=== PATIENT | female | born 1955 | race Caucasian/White ===

== ENCOUNTER 2019-06-09 06:39 | Day surgery (SDC) | payer MEDICARE ==
[2019-06-09] VITALS (12 sets, daily range): BP systolic 103–133; BP diastolic 56–88
[~2019-06-09] VITALS: Ht 162.6 cm; Wt 106.7 kg
[2019-06-09] MEDS ORDERED: dextrose ORAL solution 15 GM/59 ML bottle PO PRN ×2 (07:55)
[2019-06-09] MEDS ORDERED: MESSAGE TO PHARMACY PO ONE (07:55)
[2019-06-09] MEDS ORDERED: glucagon, human recombinant 1mg kit SUBCUT PRN (07:55)
[2019-06-09] MEDS ORDERED: nitroGLYCERIN 0.4mg SUBLingual tab SL PRN ×2 (07:55→11:25)
[2019-06-09] MEDS ORDERED: diphenhydrAMINE 25mg capsule PO PRN (07:55)
[2019-06-09] MEDS ORDERED: LORazepam 0.5 MG tablet PO PRN (07:55)
[2019-06-09] MEDS ORDERED: insulin Lispro (HumaLOG) vial - multi-dose SQ SCH (07:55)
[2019-06-09] MEDS ORDERED: normal saline 1,000 ML IV SCH (07:55)
[2019-06-09] MEDS ORDERED: dextrose 50%-water 50ml dispensing syringe IV PRN ×2 (07:55)
[2019-06-09] MEDS ORDERED: DULO30CA52 PO (08:19)
[2019-06-09] MEDS ORDERED: NITR0.4T51 SL (08:19)
[2019-06-09] MEDS ORDERED: METF500T20 PO (08:19)
[2019-06-09] MEDS ORDERED: METO50TA17 PO (08:19)
[2019-06-09] MEDS ORDERED: OMEP40CA13 PO (08:19)
[2019-06-09 08:28] LABS: BASOPHILS % (AUTO) 0.3 % (0-1); EOSINOPHILS # (AUTO) 0.1 X10'3 (0-0.9); EOSINOPHILS % (AUTO) 1.7 % (0-6); HEMATOCRIT 37.1 % (35.0-45.0); HEMOGLOBIN 12.5 g/dl (12.0-16.0); LYMPHOCYTES # (AUTO) 1.2 X10'3 (1.1-4.8); LYMPHOCYTES % (AUTO) 25.4 % (21-51); MEAN CORPUSCULAR HEMOGLOBIN 27.9 PG (27.0-31.0); MEAN CORPUSCULAR HGB CONC 33.7 g/dL (33.0-36.5); MEAN CORPUSCULAR VOLUME 82.7 FL (78-98); MEAN PLATELET VOLUME 7.2 FL (7.4-10.4); MONOCYTES # (AUTO) 0.3 X10'3 (0-0.9); MONOCYTES % (AUTO) 5.6 % (2-12); NEUTROPHILS # (AUTO) 3.2 X10'3 (1.8-7.7); PLATELET COUNT 189 X10'3 (140-440); RED BLOOD COUNT 4.48 X10'6 (4.20-5.60); RED CELL DISTRIBUTION WIDTH 14.8 % (11.5-14.5); WHITE BLOOD COUNT 4.7 X10'3 (4.5-11.0)
[2019-06-09 08:36] LABS: ALBUMIN 3.2 G/DL (3.4-5.0); BLOOD UREA NITROGEN 12 MG/DL (7-18); BUN/CREATININE RATIO 15.8 (6.6-38.0); CALCIUM 8.1 MG/DL (8.5-10.1); CREATININE 0.76 MG/DL (0.40-0.90); POTASSIUM 3.6 MMOL/L (3.5-5.1); TOTAL CARBON DIOXIDE 28.6 MMOL/L (24-32); eGFR 77 ML/MIN
[2019-06-09 08:40] LABS: PARTIAL THROMBOPLASTIN TIME 46 SECONDS (22-32)
--- NOTE | 2019-06-09 08:44 | NUR ---
Pt resting in bed, appears comfortable, even respirations. VS stable as charted. Contacted pt's as per her request, will call him back once patient is back from procedure.
[2019-06-09 09:09] LABS: GLUCOSE 142 MG/DL (70-104); SODIUM 141 MMOL/L (135-145)
[2019-06-09 09:17] LABS: HEMOGLOBIN A1C 6.5 % (4.5-6.2)
[2019-06-09 09:19] LABS: ANION GAP 6 (8-16); CHLORIDE 106 MMOL/L (99-107)
[2019-06-09] MEDS ORDERED: LIDOcaine 1% (10mg/ml)w/preservative injection 20ml MDV ONE (09:49)
[2019-06-09] MEDS ORDERED: fentaNYL/PF 50MCG/1 ML 2ML syringe ONE ×2 (09:49→10:27)
[2019-06-09] MEDS ORDERED: midazolam 2 mg/2 ml injection ONE ×2 (09:49→10:27)
[2019-06-09] MEDS ORDERED: iohexol 350 MG/ML 50ML vial IV ONE (09:49)
[2019-06-09] MEDS ORDERED: iohexol 350MG/ML 100ml bottle IV ONE (09:49)
--- NOTE | 2019-06-09 10:00 | NUR ---
PT LEFT FLOOR FOR PROCEDURE
[2019-06-09 10:51] LABS: ISTAT HGB ART 10.2 g/dl (12.0-16.0); ISTAT Hct ART 30 %PCV (35-48); ISTAT O2 SATURATION ARTERIAL 98 % (95-98); ISTAT SOURCE ART
[2019-06-09] MEDS ORDERED: HYDROcodone/acetaminophen 5mg/325mg tablet PO PRN (11:25)
[2019-06-09] MEDS ORDERED: normal saline 1000ml 1,000 ML IV SCH (11:25)
[2019-06-09] MEDS ORDERED: ondansetron/PF 4mg/2ml inj IV PRN (11:25)
[2019-06-09] MEDS ORDERED: proCHLORperazine 10 MG/2 ml inj IV PRN (11:25)
[2019-06-09] MEDS ORDERED: OXAZEpam 15mg capsule PO PRN (11:25)
[2019-06-09] MEDS ORDERED: HYDROcodone/acetaminophen 10/325mg tab PO PRN (11:25)
--- NOTE | 2019-06-09 12:18 | NUR ---
spoke with patients , per her request. , Don states he will be here by 1645 to pick pulling machine operator at 1700.
--- NOTE | 2019-06-09 16:04 | NUR ---
Problems reprioritized. Patient report given, questions answered & plan of care reviewed with Vinicio PATRICK.
[2019-06-09] MEDS ORDERED: insulin glargine (Lantus) pen - multi-dose SQ SCH (21:00)
== END 2019-06-09 16:55 | disposition home or self-care (01) ==
LOC: SSTAY O 06:39 → MED 3N 06:47 → SSTAY O 16:55
PROVIDERS: ATTEND Internal Medicine Cardiovascular Disease
DX: R94.39 Abnormal result of other cardiovascular function study (principal); R06.09 Other forms of dyspnea; I25.119 Atherosclerotic heart disease of native coronary artery with unspecified angina pectoris; I25.82 Chronic total occlusion of coronary artery; F32.9 Major depressive disorder, single episode, unspecified; I10 Essential (primary) hypertension; E11.9 Type 2 diabetes mellitus without complications; J44.9 Chronic obstructive pulmonary disease, unspecified; E66.01 Morbid (severe) obesity due to excess calories; Z68.41 Body mass index [BMI] 40.0-44.9, adult; Z95.1 Presence of aortocoronary bypass graft; Z90.710 Acquired absence of both cervix and uterus; Z86.14 Personal history of Methicillin resistant Staphylococcus aureus infection; Z88.8 Allergy status to other drugs, medicaments and biological substances; Z79.899 Other long term (current) drug therapy; Z79.84 Long term (current) use of oral hypoglycemic drugs; Z87.891 Personal history of nicotine dependence; Z79.01 Long term (current) use of anticoagulants
CPT/HCPCS: 36415; 71046; 80048; 82803; 82948; 83036; 85014; 85025; 85610; 85730; 93005; 93461; 99152; 99153; C1769; J1644; J1815; J2001; J2250; J3010; J7030; Q0163; Q9967; A4620; A6258; C1760

== ENCOUNTER 2024-10-19 11:28 | Inpatient (IN) | payer MEDICARE, OTHER ==
[~2024-10-19] VITALS: Ht 160 cm; Wt 96.3 kg
[~2024-10-19 11:28] MED LIST: DULO30CA52 PO; MECL-226 PO; METF-900 PO; METO50TA17 PO; NITR0.4T51 SL; OMEP40CA21 PO
--- NOTE | 2024-10-19 13:51 | Physician Documentation ---
History of Present Illness General Chief Complaint: See Chief Complaint Stated Complaint: TOE PAIN Time Seen by MD: 13:50 OK to notify your PCP?: No Source: patient, RN notes reviewed Mode of Arrival: Ambulatory Exam Limitations: no limitations History of Present Illness Initial Comments 68-year-old female, with a history of diabetes, presents complaining of severe left 3rd toe pain. Patient reports she was diagnosed with a DVT on 09/15/2024 after presenting to [facility] with the leg pain. Patient reports Dr. Moya placed a stent in her left lower extremity and she was discharged after a two day admission. She has been has been taking Plavix Na 1 mg of aspirin da padmini. Since this time her left 3rd toe became gangrene and she has had severe pain for the last several weeks. She reports the toe feels as if it is going to explode. Pain radiates up the foot and increases with walking. Medication Reconciliation Allergies: Coded Allergies: No Known Allergies (Unverified , 10/19/24) Scheduled Aspirin (Aspirin), 1 TAB PO DAILY Atorvastatin Calcium (Atorvastatin Calcium), 40 MG PO DAILY Clopidogrel Bisulfate (Clopidogrel), 1 TAB PO DAILY, (Reported) Duloxetine HCl (Duloxetine HCl), 1 CAP PO DAILY, (Reported) Insulin Glargine/Lixisenatide (Soliqua 100 Unit-33 Mcg/ml Pen), 28 UNITS SUBCUT DAILY, (Reported) Meclizine HCl (Meclizine HCl), 1 TAB PO Q8H Meclizine HCl (Meclizine HCl), 2 TAB PO Q8H Metformin Hcl* (Metformin ER*), 1 TAB PO BID, (Reported) Metoprolol Tartrate* (Metoprolol Tartrate*), 1 TAB PO BID, (Reported) Nitroglycerin SL* (Nitrostat SL*), 1 TAB SL UD, (Reported) Omeprazole (Prilosec), 20 MG PO DAILY, (Reported) Pregabalin (Pregabalin), 1 CAP PO BID, (Reported) Scheduled PRN Hydrocodone Bit/Acetaminophen 5/325 MG (Champion 5/325 MG), 1 TAB PO Q6H PRN for pain Past Medical History Past Medical History: Diabetes Past Surgical History: appendectomy, cholecystectomy, hysterectomy, orthopedic surgeries Other Past Surgical History: Open heart surgery Drug Use: none Lives In: Home Review of Systems All Other Systems at this time: Reviewed and Negative ROS left 3rd toe pain as well as other positive symptoms as stated above in the HPI, otherwise all systems are reviewed and negative. Physical Exam Physical Exam Vital Signs: RN Vital Signs have been reviewed: Yes, Temperature: 97.2, Source: Oral, Heart Rate: 104, Respiratory Rate: 16, BP: 164/98, Pulse Oximetry: 98, Weight: 96.300 Pulse Oximetry Reflects: adequate oxygenation Physical Exam VITALS: Reviewed and as above. GENERAL: Alert, no apparent distress. HEENT: Normocephalic, atraumatic, PERRL, EOMI, dry mucosa RESPIRATORY: Lungs clear, normal breath sounds, no respiratory distress. CHEST: No accessory muscle use, no retractions CV: Regular rate, rhythm, no edema, no murmur, No: JVD GI: Soft, non-tender, bowels sounds present, no rebound, guarding, or rigidity MUSCULOSKELETAL: Positive of the left 3rd toe was necrotic, proximal portion of the distal phalanx with erythema, swelling, and tenderness. Distal left 2nd toe with some erythema. Otherwise: No deformities, no edema SKIN: See above. Warm and dry, no rash NEURO: Oriented x4, No motor or sensory deficit PSYCH: Normal mood and affect, no agitation Progress Progress Note 1420: Case discussed with Dr. Varner, vascular surgeon, who recommends consulting ortho. 1724: Case discussed with Dr. Sales, oracle erp developer, who requests hospitalist admission and will see her for surgery. 1724: Hospitalist paged. 1745: Case discussed with internal medicine resident, who agrees to evaluate the patient for admission. Results/Orders Reviewed/noted all lab results: Yes Results/Orders Orders - OHLFS,ROSIE Caban MD Vl Arterial (10/19/24 14:18) Toe(S) (10/19/24 14:35) Md To Page (10/19/24 ) Page Hospitalist (10/19/24 17:24) Fill Out Med Reconciliation (10/19/24 17:24) Completed Orders - OHLFSROSIE MD Vl Arterial (10/19/24 14:18) Toe(S) (10/19/24 14:35) Cbc/Diff (10/19/24 14:34) BMP (10/19/24 14:34) Procalcitonin (10/19/24 14:34) Oxycodone/Acetaminophen Tablet (Percocet (10/19/24 15:25) C-Reactive Protein (10/19/24 14:50) Vancomycin*Pharmacy To Dose* (Vancomycin (10/19/24 17:25) Vancomycin/Ns 1 Gm Add-[place] (Vancomyc (10/19/24 17:30) Hgb A1c (10/19/24 14:50) Lipid Panel (10/19/24 14:50) PBNP (10/19/24 14:50) Laboratory Tests Test 10/19/24 14:50 White Blood Count 6.4 Red Blood Count 4.76 Hemoglobin 11.8 L Hematocrit 35.8 Mean Corpuscular Volume 75.1 L Mean Corpuscular Hemoglobin 24.7 L Mean Corpuscular Hemoglobin Concent 33.0 Red Cell Distribution Width 15.2 H Platelet Count 204 Mean Platelet Volume 7.0 L Neutrophils (%) (Auto) 72.6 Lymphocytes (%) (Auto) 19.7 L Monocytes (%) (Auto) 5.0 Eosinophils (%) (Auto) 2.2 Basophils (%) (Auto) 0.5 Neutrophils # (Auto) 4.7 Lymphocytes # (Auto) 1.3 Monocytes # (Auto) 0.3 Eosinophils # (Auto) 0.1 Basophils # (Auto) 0.0 CBC Comment Sodium Level 140 Potassium Level 3.9 Chloride Level 105 Carbon Dioxide Level 26.1 Anion Gap 9 Blood Urea Nitrogen 11 Creatinine 0.61 Estimated GFR/1.73 m2 > 90 BUN/Creatinine Ratio 18.0 Glucose Level 103 Hemoglobin A1c 6.7 H Calcium Level 8.7 C-Reactive Protein 0.92 H Pro-B-Type Natriuretic Peptide 241 H Albumin 3.4 Triglycerides Level 211 H Cholesterol Level 138 LDL Cholesterol 81 HDL Cholesterol 31 L Cholesterol/HDL Ratio 4.5 Procalcitonin < 0.05 Chemistry Comments EKG/XRAY/CT/US/VASC/MRI Bone/Soft Tissue X-Ray (Ext.) : Additional Comment CLINICAL INDICATION: necrotic right 3rd toe TECHNIQUE: 3 radiographic views of the left foot and left 3rd digit were obtained. Comparison: None FINDINGS/IMPRESSION: Cortical destruction of the 3rd distal phalanx which may represent osteomyelitis. Reviewed by [facility]. Vascular : Interpreted By: radiologist Vascular Study: lower extremity venous Impression Patient Location: ER Indications Left lower extremity toe/foot pain Risk Factors History of Lower Extremity PAD: Left Hypertension Cardiac Disease Diabetes Surgery/Intervention Stent : Date : 09/16/2024 Site : Left mid superficial femoral artery Medications Plavix Aspirin VELOCITY AND DOPPLER WAVEFORM ANALYSIS RIGHT cm/sec Waveform Severity LEFT cm/sec Waveform Severity dCFA dCFA 119.1 Multiphasic Prof Fem Art. Prof Fem Art. 97.1 Multiphasic Fem Art Prox. Fem Art Prox. 105.8 Multiphasic Fem Art Mid. Fem Art Mid. 103.7 Multiphasic Fem Art Dist. Fem Art Dist. 111.7 Multiphasic Pop Art(AK) Pop Art(AK) 116.9 Multiphasic Pop Art(BK) Pop Art(BK) 75.7 Multiphasic SUPERVISOR STEFFEN HOUSE Dist. SUPERVISOR STEFFEN HOUSE Dist. 108.4 Multiphasic Per Art Dist. Per Art Dist. 74.4 Multiphasic LOIS Dist. LOIS Dist. 92.9 Multiphasic Conclusion Technologist Preliminary Impression: Mild to moderate plaque seen throughout the left lower extremity. However, imaging reveals no evidence for a hemodynamically significant stenosis or occlusion in the left lower extremity. Visualize stent in the left mid superficial femoral artery appears patent without stenosis. Multiphasic flow is noted throughout the left lower extremity. Unable to perform ankle-brachial index due to patient pain. Multiphasic triple- vessel runoff visualized at the foot. Reviewed by myself Medical Decision Making Findings The patient is a 69-year-old female who presents with a necrotic tip of her 3rd toe patient also has some erythema just proximal to the necrotic region of her toe her arterial studies were all reviewed the appear to show good flow. The case has been discussed with Dr. Sales who was agreed to consult on the patient. The patient has been given IV antibiotics for possible cellulitis or osteomyelitis the patient will be admitted to the hospitalist service for surgical intervention. The patient's prior hospitalizations have been reviewed patient's labs have been reviewed her pulse oximetry was interpreted as normal and adequate. The patient's sofa back upholsterer was interpreted as a sinus rhythm patient's imaging was reviewed and the radiologist's interpretations have been reviewed other considerations are osteomyelitis. The patient will be admitted Departure Time of Disposition: 17:24 Disposition: ADMITTED INPATIENT Admitted to Inpatient Unit: yes, to hospitalist Impression: Primary Impression: Necrosis of toe Additional Impression: Cellulitis Qualified Codes: L03.032 - Cellulitis of left toe Condition: Fair Prescriptions Atorvastatin Calcium (Atorvastatin Calcium) 20 Mg Tablet 40 MG PO DAILY for 30 Days, #60 TAB Prov: APOLLO BATRES, RES 10/22/24 Aspirin (Aspirin) 81 Mg Tab.chew 1 TAB PO DAILY for 30 Days, #30 TAB.CHEW Prov: APOLLO BATRES, RES 10/22/24 Hydrocodone Bit/Acetaminophen 5/325 MG (Champion 5/325 MG) 5 Mg/325 Mg Tablet 1 TAB PO Q6H PRN for pain, #14 TAB Prov: IRVIN HAWKINS MD 10/22/24 Education Educated: Patient Educated regarding: diagnosis, treatment Signature Scribe Signature: Scribed for Rosie You MD by Maureen Rodirguez . 10/19/24 14:15 Attestation: The note accurately reflects work and decisions made by me.Rosie You MD 10/25/24 15:10 ROSIE YOU MD Oct 19, 2024 13:51 MAUREEN MOURA Oct 19, 2024 14:21
--- NOTE | 2024-10-19 14:46 | RADIOLOGY REPORT ---
CLINICAL INDICATION: necrotic right 3rd toe TECHNIQUE: 3 radiographic views of the left foot and left 3rd digit were obtained. Comparison: None FINDINGS/IMPRESSION: Cortical destruction of the 3rd distal phalanx which may represent osteomyelitis.
[2024-10-19 15:04] LABS: MEAN PLATELET VOLUME 7.0 FL (7.4-10.4); RED CELL DISTRIBUTION WIDTH 15.2 % (11.5-14.5)
[2024-10-19 15:18] LABS: CREATININE 0.61 MG/DL (0.40-0.90); TOTAL CARBON DIOXIDE 26.1 MMOL/L (24-32); eCRCL 72 ML/MIN; eGFR > 90 ML/MIN
[2024-10-19] MEDS: oxyCODONE/APAP 5-325mg tablet PO ONE (15:37)
[2024-10-19] MEDS: vancomycin/NS 1 GM ADD-VANTAGE 250 ML X 1 DOSE IV ONE (18:12)
[2024-10-19] MEDS ORDERED: ondansetron/PF 4mg/2ml inj IV PRN (18:15)
[2024-10-19] MEDS ORDERED: HYDROcodone/acetaminophen 5mg/325mg tablet PO PRN (18:15)
[2024-10-19] MEDS ORDERED: potassium Cl 40MEQ/1/2NS 520ml 520 ML IV PRN (18:15)
[2024-10-19] MEDS ORDERED: magnesium Cl slow-release 64mg tablet PO PRN (18:15)
[2024-10-19] MEDS ORDERED: magnesium sulf-water 4G/100mL 100 ML IV PRN (18:15)
[2024-10-19] MEDS ORDERED: mag hydrox/Alum hydrox/simeth 30ml oral suspension PO PRN (18:15)
[2024-10-19] MEDS ORDERED: potassium Cl 20 mEq SR tablet PO PRN ×2 (18:15)
[2024-10-19] MEDS ORDERED: magnesium hydroxide 30ml (MOM) UD suspension PO PRN (18:15)
[2024-10-19] MEDS ORDERED: magnesium sulf-water 2g/50mL 50 ML IV PRN (18:15)
[2024-10-19] MEDS ORDERED: CefTRIAXone 2gm/D5W 50ml BAG 50 ML IV SCH (18:20)
[2024-10-19] MEDS ORDERED: dextrose 50%-water 50ml dispensing syringe IV PRN ×2 (18:20)
[2024-10-19] MEDS ORDERED: DEXTROSE 15 GM of carb/4 tabs (each vial/BOTTLE has 4 tablets) PO PRN ×2 (18:20)
[2024-10-19] MEDS ORDERED: glucagon, human recombinant 1mg kit SUBCUT PRN (18:20)
--- NOTE | 2024-10-19 18:29 | HISTORY AND PHYSICAL-Residence ---
History & Physical Providers to CC Resident Creating Document: GENE PIEDRA RES ~ History of Present Illness Reason for Admit\Complaint: 3rd left foot toe osteomyelitis History of Present Illness This is a 68-year-old female patient with past medical history of type 2 diabetes mellitus, PAD, hyperlipidemia, CAD, presents for progressive pain in the 3rd distal phalanx of the left foot. The patient had acute arterial thrombosis of the left leg in September 16, treated with thrombectomy and stenting placement. Soon after the procedure the patient had left foot livedo reticularis and discoloration of the 3rd toe. Patient was discharged and recommended to follow-up outpatient. Patient could not undergo surgery because of insurance denials and has been treated with multiple course of antibiotics. The pain has progressed and she has not being able to do most of her daily activities because of the pain. She denies fever, nausea, vomiting or other systemic symptoms. Allergies: Coded Allergies: No Known Allergies (Unverified , 10/19/24) Home Medications Home Medications Active Meclizine HCl 12.5 Mg Tablet 2 Tab PO Q8H 30 Days Meclizine HCl 12.5 Mg Tablet 1 Tab PO Q8H 10 Days Reported Nitrostat SL* (Nitroglycerin) 0.4 Mg Tablet 1 Tab SL UD 1st sign of attack; may repeat every 5 mins; if pain persists after 3 in 15 min, medical attention is recommended Duloxetine HCl 30 Mg Capsule.dr Levi Cap PO DAILY 30 Days Metformin ER* (Metformin HCl) 500 Mg Tab.sr.24h 1 Tab PO BID 30 Days Metoprolol Tartrate 50 Mg Tablet 1 Tab PO BID 30 Days Prilosec (Omeprazole) 40 Mg Capsule 20 Mg PO DAILY 30 Days Past Medical History Past Medical History Type 2 diabetes mellitus on insulin 28 units daily Peripheral artery disease Hyperlipidemia Coronary artery disease, followed by Dr. Stevens Past Surgical History Surgical History Comment Arterial embolectomy with stent placement of the left leg on September 16 CABG in 2011 Cholecystectomy Hysterectomy Past Social History Social History Comment Patient quit smoking in 2001. She used to smoke to smoke one pack a day. No alcohol or drug use history. Smoking: Quit greater than 1 year Drug Use: None Lives In: Home ROS All Other Systems: Reviewed and Negative Constitutional: Reports: no symptoms reported Eyes: Reports: no symptoms reported ENT: Reports: no symptoms reported Respiratory: Reports: no symptoms reported Cardiovascular: Reports: no symptoms reported Gastrointestinal: Reports: no symptoms reported Genitourinary: Reports: no symptoms reported Female Genitalia: Reports: no reported symptoms Neurological: Reports: no symptoms reported Musculoskeletal: Reports: see HPI Integumentary: Reports: see HPI Allergic/Immunologic: Reports: no symptoms reported Hematologic/Lymphatic: Reports: no symptoms reported Endocrine: Reports: no symptoms reported Psychiatric: Reports: no symptoms reported Exam Vitals: Vital Signs Date Time Temp Pulse Resp B/P (MAP) Pulse Ox O2 Delivery O2 Flow Rate FiO2 10/19/24 17:17 80 16 157/82 (107) 97 10/19/24 11:46 97.2 General: General: Awake and Alert, no acute distress. HEENT: Conjunctiva pink, Sclera clear, Mucus Membranes moist. Neck: Supple without masses and tenderness. Resp: Unlabored. Lungs clear to auscultation bilaterally. Heart: Regular Rate and rhythm, normal S1 and S2 without murmur, rub or gallop. Abdomen: Soft and non tender no organomegaly Extremities: No cyanosis,clubbing or edema. Diminished peripheral pulses bilaterally. Skin: Warm and Dry. Necrosis of the 3rd distal phalanx of the left foot with minimal erythema associated. Diagnostic Data Last Recorded Lab Results: 10/19/24 1450 10/19/24 1450 Advance Care Planning Advanced Care plannin - 30 Minutes (I have discussed with advanced care directives and the patient wants to be DNR) Additional Plan Assessment and plan 1. Dry gangrene involving the 3rd distal phalanx, left foot Assessment Most likely secondary to cholesterol emboli Pain and discoloration started after arterial thrombectomy Lesion progressed over the course of one month On aspirin and Plavix, no anticoagulant No signs of sepsis, no signs of cellulitis WBC 6.4, procalcitonin<0.05, C-reactive protein 0.92 Left foot x-ray: Cortical destruction of the 3rd distal phalanx which may represent osteomyelitis. Arterial left leg US: Patent left SFA stent. No sonographic evidence for hemodynamically significant stenosis. Scattered atherosclerotic calcification disease Plan Ordered blood cultures Dr Varner consulted by the ER physician. Recommendations are appreciated. Dr. Sales, fashion director, planning to do surgery on 10/21/24 morning Held antibiotics since no clear signs of cellulitis and normal white count/procalcitonin 2. Type 2 diabetes mellitus, insulin-dependent 3. Peripheral artery disease 4. Coronary artery disease, s/p CABG in 2011 5. Hyperlipidemia Ordered A1c Ordered lipid panel Did not tolerate statins, previously on Repatha Continue aspirin and Plavix after med reconciliation Code Status: DNR DVT prophylaxis: Heparin Analgesia/sedation: Morphine/[place] Nutrition: 75g carb diet diet Prognosis: Guarded Physical therapy: Yes Disposition: Admit to surgical floor. Pending med reconciliation. Resident MD attestation The above note has been reviewed and supervised by a senior resident PGY2/PGY3 Patient was seen, examined and discussed with the attending physician Date of Service: Oct 19, 2024 Billing Provider: IRVIN HAWKINS MD Common Visit Codes: 71222-[id number] INP/OBS CARE (HIGH) Secondary Visit Codes: 32533-[id number] CARE PLAN 30 MINUTES GENE PIEDRA, RES Oct 19, 2024 18:29 IRVIN HAWKINS MD Oct 21, 2024 07:13
--- NOTE | 2024-10-19 18:39 | VASCULAR REPORT ---
Indication: Left lower extremity 12/foot pain Technique: Real- time ultrasound images of the lower extremity with grayscale, color, and spectral wave Doppler. Comparison: None Findings: Stent within the left mid SFA. Biphasic/ triphasic waveforms left PLANT TECH, SFA, popliteal, peroneal, ante rior tibial arteries. Scattered atherosclerotic plaque. Peak systolic velocities are as follows (in cm/s): Left: Common femoral artery: 119 Profunda femoris: 97 Proximal superficial femoral: 105 Mid superficial femoral artery: 103 Distal superficial femoral artery: 117 Popliteal artery: 116 Posterior tibial artery: 108 Anterior tibial artery: 92 Peroneal: 74 Impression: Patent left SFA stent. No sonographic evidence for hemodynamically significant stenosis. Scattered atherosclerotic calcification disease.
[2024-10-19 18:47] LABS: CHOL/HDL RATIO 4.5 (0.00-4.99); LDL CHOLESTEROL 81 MG/DL (50-100); PRO BRAIN NATRIURETIC PEPTIDE 241 PG/ML (0-125)
[2024-10-19] MEDS ORDERED: PREG75CA76 PO (19:44)
[2024-10-19] MEDS ORDERED: INSU3INS2 SUBCUT (19:44)
[2024-10-19] MEDS ORDERED: CLOP75TA34 PO (19:44)
[2024-10-19] MEDS: K and/or MAG REPLACEMENT MC SCH (20:00)
[2024-10-19 20:28] VITALS: BP 150/79; PULSE 85; RESP 19; TEMP 97.5; O2SAT 85
[2024-10-19 22:00] VITALS: BP 112/69; PULSE 91; RESP 19; TEMP 97.8; O2SAT 96
[2024-10-19] MEDS: docusate sod 100mg capsule PO SCH (22:34)
[2024-10-19] MEDS: heparin, porcine 5000 units/ml vial SQ SCH (22:35)
[2024-10-19] MEDS: INSULIN LISPRO 100 UNIT/ML INSULN.PEN MULTI-DOSE SQ SCH (22:59)
[2024-10-19] MEDS: HYDROcodone/acetaminophen 10/325mg tab PO PRN (23:04)
[2024-10-20 05:00] LABS: MEAN PLATELET VOLUME 7.0 FL (7.4-10.4); RED CELL DISTRIBUTION WIDTH 15.4 % (11.5-14.5)
[2024-10-20 05:37] LABS: CREATININE 0.75 MG/DL (0.40-0.90); TOTAL CARBON DIOXIDE 28.5 MMOL/L (24-32); eCRCL 59 ML/MIN; eGFR 77 ML/MIN
[2024-10-20 06:00] VITALS: BP 100/51; PULSE 70; RESP 15; TEMP 97.5; O2SAT 94
[2024-10-20] MEDS ORDERED: vancomycin/NS 1 GM ADD-VANTAGE 250 ML IV SCH (06:00)
--- NOTE | 2024-10-20 07:13 | CONSULTATION REPORT ---
Consult Providers to CC ~ History of Present Illness Reason for Admit\Complaint: Dry gangrene to L 3rd digit History of Present Illness This is a 68 y/oF with PMH consistent with T2DM, HLD, CAD, who presents with dry gangrenous changes to the left 3rd toe without overt signs of clinical infection. She is now s/p thrombectomy and stent following arterial thrombosis 09/16/2024. She states she has been in severe pain to the left lower extremity and third digit since the onset in August. She denies nausea, vomiting, fever, chills, chest pain, shortness of breath. Allergies: Coded Allergies: No Known Allergies (Unverified , 10/19/24) Home Medications Home Medications Active Meclizine HCl 12.5 Mg Tablet 2 Tab PO Q8H 30 Days Meclizine HCl 12.5 Mg Tablet 1 Tab PO Q8H 10 Days Reported Clopidogrel (Clopidogrel Bisulfate) 75 Mg Tablet 1 Tab PO DAILY Pregabalin 75 Mg Capsule 1 Cap PO BID Soliqua 100 Unit-33 Mcg/ml Pen (Insulin Glargine/Lixisenatide) 100 Unit-33 Mcg/Ml (3 Ml) Insuln.pen 28 Units SUBCUT DAILY Nitrostat SL* (Nitroglycerin) 0.4 Mg Tablet 1 Tab SL UD 1st sign of attack; may repeat every 5 mins; if pain persists after 3 in 15 min, medical attention is recommended Duloxetine HCl 30 Mg Capsule.dr 1 Cap PO DAILY 30 Days Metformin ER* (Metformin HCl) 500 Mg Tab.sr.24h 1 Tab PO BID 30 Days Metoprolol Tartrate* (Metoprolol Tartrate) 50 Mg Tablet 1 Tab PO BID 30 Days Prilosec (Omeprazole) 40 Mg Capsule 20 Mg PO DAILY 30 Days Exam Vitals: Vital Signs Date Time Temp Pulse Resp B/P (MAP) Pulse Ox O2 Delivery O2 Flow Rate FiO2 10/19/24 22:00 97.8 91 19 112/69 (83) 96 Room Air Musculoskeletal: LLE: -DP/PT pulses palpable -Light touch sensation intact to digits 1-5 -There is dry gangrene present at the distal tuft of the third digit extending to the level of the DIPJ without erythema, fluctuance, drainage, and malodor Diagnostic Data Last Recorded Lab Results: 10/20/2443810/20/24438 Additional Plan Plan: -NPO tonight at midnight for OR 10/21 for L partial 3rd digital amputation. Discussed surgical plan with Ms. Jacobsen at bedside this morning and she was amenable to all of our recommendations. -Heel WBAT to the LLE. Will plan to place in postoperative shoe after OR -Can continue empiric Abx. Okay from surgical standpoint to transition to PO at discharge-no overt signs of clinical infection. -Plan discussed in detail with Dr. Sales Date of Service: Oct 20, 2024 Billing Provider: ABDIFATAH SALES DPM Common Visit Codes: [id number]-[id number] INP/OBS CARE (LOW) Inpatient Consultation Codes: 47316-[id number] CONSULT <35MIN GRAYSON BUTCHER DPM Oct 20, 2024 07:13
[2024-10-20] MEDS: insulin glargine (Lantus) pen - multi-dose SQ SCH (08:00)
[2024-10-20 08:29] VITALS: RESP 16
[2024-10-20 13:10] VITALS: BP 113/56; PULSE 73; RESP 18; TEMP 97.5; O2SAT 99
[2024-10-20] MEDS: aspirin 81mg, enteric-coated 1 TAB TABLET.DR PO SCH (15:28)
--- NOTE | 2024-10-20 15:58 | ELECTROCARDIOGRAPH REPORT ---
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 IKER Vila Measurements Intervals [place] Rate: 76 P: 52 AL: 162 QRS: 74 QRSD: 100 T: 77 QT: 406 QTc: 457 Interpretive Statements Sinus rhythm Multiple ventricular premature complexes Low voltage, precordial leads Nonspecific T abnormalities, anterior leads Electronically Signed On 10-20-2024 18:03:[address] IKER Vila Please click the below link to view image of tracing.
[2024-10-20 16:18] LABS: PRE OP INR 1.2 INR; PRE OP PROTIME 12.0 SECONDS (9.0-12.0)
[2024-10-20 16:37] LABS: PRE OP PARTIAL THROMB. TIME 50.0 SECONDS (22-32)
--- NOTE | 2024-10-20 17:38 | PROGRESS NOTE- Residence ---
Progress Note - Resident Providers to CC Resident Creating Document: GENE PIEDRA RES ~ Antibiotic Timeout Antibiotic Ordered?: No Subjective Patient was seen and examined at the bedside. Patient states good pain control since admission. No other symptoms reported. Objective Vital Signs Date Time Temp Pulse Resp B/P (MAP) Pulse Ox O2 Delivery O2 Flow Rate FiO2 10/20/24 13:10 97.5 73 18 113/56 (75) 99 10/20/24 08:29 Room Air Result Diagram: 10/20/2443810/20/24438 General: Awake and Alert, no acute distress. HEENT: Conjunctiva pink, Sclera clear, Mucus Membranes moist. Neck: Supple without masses and tenderness. Resp: Unlabored. Lungs clear to auscultation bilaterally. Heart: Regular Rate and rhythm, normal S1 and S2 without murmur, rub or gallop. Abdomen: Soft and non tender no organomegaly Extremities: No cyanosis,clubbing or edema. Diminished peripheral pulses bilaterally. Skin: Warm and Dry. Necrosis of the 3rd distal phalanx of the left foot with minimal associated erythema. Coagulation Studies Laboratory Tests Test 10/20/24 15:52 Prothrombin Time 12.0 SECONDS (9.0-12.0) INR International Normalized Ratio 1.2 INR Activated Partial Thromboplast Time 50 SECONDS (22-32) *H Plan Plan Assessment and plan 1. Dry gangrene involving the 3rd distal phalanx, left foot Assessment Most likely secondary to cholesterol emboli Pain and discoloration started after arterial thrombectomy Lesion progressed over the course of one month On aspirin and Plavix, no anticoagulant No signs of sepsis, no signs of cellulitis WBC 6.4, procalcitonin<0.05, C-reactive protein 0.92 Left foot x-ray: Cortical destruction of the 3rd distal phalanx which may represent osteomyelitis. Arterial left leg US: Patent left SFA stent. No sonographic evidence for hemodynamically significant stenosis. Scattered atherosclerotic calcification disease Plan Ordered blood cultures Dr Varner consulted by the ER physician. Recommendations are appreciated. Dr. Sales, income auditor, planning to do surgery on 10/21/24 morning Held antibiotics since no clear signs of cellulitis and normal white count/procalcitonin 10/20/24 WBC 4.8 Pain controlled, no signs of secondary infection Left partial 3rd digital amputation planned for tomorrow. PTT 50 today, patient only on prophylactic heparin. Ordered new PTT to confirm. 2. Type 2 diabetes mellitus, insulin-dependent 3. Peripheral artery disease 4. Coronary artery disease, s/p CABG in 2011 5. Hyperlipidemia Ordered A1c Ordered lipid panel Did not tolerate statins, previously on Repatha Continue aspirin and Plavix Code Status: DNR DVT prophylaxis: Heparin Analgesia/sedation: Morphine/[place] Nutrition: 75g carb diet diet Prognosis: Guarded Physical therapy: Yes Disposition: Continue medical treatment. Resident MD attestation The above note has been reviewed and supervised by a senior resident PGY2/PGY3 Patient was seen, examined and discussed with the attending physician Date of Service: Oct 20, 2024 Billing Provider: IRVIN HAWKINS MD Common Visit Codes: [id number] INP/OBS CARE(HIGH) GENE PIEDRA, RES Oct 20, 2024 17:38 IRVIN HAWKINS MD Oct 21, 2024 07:13
[2024-10-20 18:00] VITALS: BP 120/74; PULSE 60; RESP 18; TEMP 98; O2SAT 95
--- NOTE | 2024-10-20 19:35 | RADIOLOGY REPORT ---
CHEST RADIOGRAPH Indication: pre op Technique: Single frontal view of the chest was obtained Comparison: None FINDINGS: Lines and Tubes: None Lungs: No focal consolidation. Midline sternotomy wires and surgical clips are noted consistent histo ry of CABG. Pleura: No effusion. No pneumothorax. Cardiomediastinal contours: Unremarkable Bones: No acute osseous abnormality. IMPRESSION: No acute cardiopulmonary disease.
[2024-10-20 20:45] LABS: APTT 48 SECONDS (22-32)
[2024-10-20 22:00] VITALS: BP 128/66; PULSE 72; RESP 16; TEMP 97.9; O2SAT 98
[2024-10-21] VITALS (18 sets, daily range): BP systolic 42–149; BP diastolic 15–84; PULSE 46–90; RESP 12–22; TEMP 97.5–98.1; O2SAT 93–98
[2024-10-21 05:37] LABS: MEAN PLATELET VOLUME 7.4 FL (7.4-10.4); RED CELL DISTRIBUTION WIDTH 15.4 % (11.5-14.5)
[2024-10-21 05:51] LABS: CREATININE 0.77 MG/DL (0.40-0.90); TOTAL CARBON DIOXIDE 24.6 MMOL/L (24-32); eCRCL 57 ML/MIN; eGFR 74 ML/MIN
[2024-10-21] MEDS: pantoprazole 40mg Tablet.DR PO SCH (09:00)
--- NOTE | 2024-10-21 17:24 | PROGRESS NOTE- Residence ---
Progress Note - Resident Providers to CC Resident Creating Document: GENE PIEDRA RES ~ Antibiotic Timeout Antibiotic Ordered?: No Subjective Patient was seen and examined at the bedside. Patient is going to OR today, pain is controlled. No other symptoms reported. Objective Vital Signs Date Time Temp Pulse Resp B/P (MAP) Pulse Ox O2 Delivery O2 Flow Rate FiO2 10/21/24 11:26 98.1 60 16 116/60 (78) 96 Room Air Result Diagram: 10/21/24 0509 10/21/24 0409 General: Awake and Alert, no acute distress. HEENT: Conjunctiva pink, Sclera clear, Mucus Membranes moist. Neck: Supple without masses and tenderness. Resp: Unlabored. Lungs clear to auscultation bilaterally. Heart: Regular Rate and rhythm, normal S1 and S2 without murmur, rub or gallop. Abdomen: Soft and non tender no organomegaly Extremities: No cyanosis,clubbing or edema. Diminished peripheral pulses bilaterally. Skin: Warm and Dry. Necrosis of the 3rd distal phalanx of the left foot with minimal associated erythema. Coagulation Studies Laboratory Tests Test 10/20/24 15:52 10/20/24 20:14 Prothrombin Time 12.0 SECONDS (9.0-12.0) INR International Normalized Ratio 1.2 INR Activated Partial Thromboplast Time 48 SECONDS (22-32) H Coagulation Comments Plan Plan Assessment and plan 1. Dry gangrene involving the 3rd distal phalanx, left foot Assessment Most likely secondary to cholesterol emboli Pain and discoloration started after arterial thrombectomy Lesion progressed over the course of one month On aspirin and Plavix, no anticoagulant No signs of sepsis, no signs of cellulitis WBC 6.4, procalcitonin<0.05, C-reactive protein 0.92 Left foot x-ray: Cortical destruction of the 3rd distal phalanx which may represent osteomyelitis. Arterial left leg US: Patent left SFA stent. No sonographic evidence for hemodynamically significant stenosis. Scattered atherosclerotic calcification disease Plan Ordered blood cultures Dr Varner consulted by the ER physician. Recommendations are appreciated. Dr. Sales, classer, planning to do surgery on 10/21/24 morning Held antibiotics since no clear signs of cellulitis and normal white count/procalcitonin 10/20/24 WBC 4.8 Pain controlled, no signs of secondary infection Left partial 3rd digital amputation planned for tomorrow. PTT 50 today, patient only on prophylactic heparin. Ordered new PTT to confirm. 10/21/2024 PTT 48, hold heparin Patient is going to OR today 2. Type 2 diabetes mellitus, insulin-dependent 3. Peripheral artery disease 4. Coronary artery disease, s/p CABG in 2011 5. Hyperlipidemia A1c 6.7 Triglycerides 211, LDL 81, HDL 31 Did not tolerate statins, continue Repatha Continue aspirin and Plavix Hold Lantus today since NPO Hyper/hypoglycemia protocol Code Status: DNR DVT prophylaxis: Heparin Analgesia/sedation: Morphine/[place] Nutrition: NPO today Prognosis: Guarded Physical therapy: Yes Disposition: Continue medical treatment. Resident MD attestation The above note has been reviewed and supervised by a senior resident PGY2/PGY3 Patient was seen, examined and discussed with the attending physician Date of Service: Oct 21, 2024 Billing Provider: IRVIN HAWKINS MD Common Visit Codes: [id number] INP/OBS CARE(HIGH) GENE PIEDRA, RES Oct 21, 2024 17:23 IRVIN HAWKINS MD Oct 21, 2024 22:14
[2024-10-21] MEDS ORDERED: BUPIVAcaine 2.5mg/ml inj 50ml vial (contains preservative) ONE (18:33)
[2024-10-21] MEDS ORDERED: bacitracin 15gm ointment TP ONE (18:33)
[2024-10-21] MEDS ORDERED: fentaNYL/PF 50MCG/1 ML 2ML syringe ONE (18:56)
[2024-10-21] MEDS ORDERED: midazolam 1 mg/ML 2ml injection ONE (18:56)
[2024-10-21] MEDS ORDERED: propofol inj 20 ML IV ONE (19:07)
[2024-10-22 00:15] VITALS: PULSE 45; O2SAT 96
[2024-10-22 00:30] VITALS: BP 119/59; PULSE 67; O2SAT 97
[2024-10-22 01:30] VITALS: BP 144/104; PULSE 67; O2SAT 96
[2024-10-22 02:30] VITALS: BP 128/60; PULSE 44; O2SAT 96
[2024-10-22 04:55] LABS: MEAN PLATELET VOLUME 7.4 FL (7.4-10.4); RED CELL DISTRIBUTION WIDTH 15.4 % (11.5-14.5)
[2024-10-22 05:29] VITALS: BP 118/61; PULSE 75; RESP 18; TEMP 98.1; O2SAT 95
[2024-10-22 05:31] LABS: CREATININE 0.72 MG/DL (0.40-0.90); TOTAL CARBON DIOXIDE 24.9 MMOL/L (24-32); eCRCL 61 ML/MIN; eGFR 80 ML/MIN
--- NOTE | 2024-10-22 07:13 | PROGRESS NOTE ---
Ortho Clinic Progress Note History of Present Illness Allergies: Coded Allergies: No Known Allergies (Unverified , 10/19/24) Social History Smoking: Quit greater than 1 year Drug Use: None Lives In: Home Pain Pain Present: Yes Non-Verbal Pain Scale Used: 1-3 Mild Verbalized Pain Intensity: 2 Location Location Modifier: Left Pain Location: Toe Radiation Location: ankle Subjective Patient is now s/p L partial 3rd digital amputation (POD#1). States she is doing otherwise well and denies n/v/f/c/cp/sob. Does endorse residual numbness secondary to peripheral nerve block. Objective Vital Signs Date Time Temp Pulse Resp B/P (MAP) Pulse Ox O2 Delivery O2 Flow Rate FiO2 10/22/24 05:29 98.1 75 18 118/61 (80) 95 Room Air 10/21/24 20:00 0.0 Alert and Oreinted x4, Appropriate, Vital signs are stable, In no acute distress, Dressing clean and dry, Distal neurovasc intact, Calves: soft bilaterally Lab Results: 10/22/24 04210/22/24428 Problem\Assessment\Plan Plan: -No further plans from foot and ankle surgical perspective. Will follow up in two weeks with Dr. Sales. -Please leave dressing c/d/i until follow up. -WBAT to the LLE in postoperative shoe. -Explained that numbess she is experiencing is secondary to peripheral block. -Remainder of care per primary. -All questions and concerns answered and addressed. GRAYSON BUTCHER DPM Oct 22, 2024 07:13
[2024-10-22 07:58] VITALS: BP_SYST 122; PULSE 78
[2024-10-22] MEDS ORDERED: HYDR-3965 PO (08:45)
[2024-10-22] MEDS ORDERED: ASPI-1265 PO (10:26)
[2024-10-22] MEDS ORDERED: ATOR20TA66 PO (10:28)
--- NOTE | 2024-10-22 11:04 | OPERATIVE REPORT ---
DATE OF SURGERY: 10/21/2024 DICTATING PHYSICIAN: ALEX SALES DPM SURGEON: Alex Sales DPM EDUCATIONAL SPECIALIST: David Enriquez DPM. Polishing Wheel Setter was necessary to decrease tourniquet time and help with efficiency throughout the entirety of the procedure. PREOPERATIVE DIAGNOSIS: Left third digital gangrene. POSTOPERATIVE DIAGNOSIS: Left third digital gangrene. PROCEDURES PERFORMED: Partial left third digital amputation. ANESTHESIA: MAC with local anesthesia. HEMOSTASIS: Achieved with electrocautery. No tourniquet was used secondary to ischemic disease. SPECIMENS: Left third digit. ESTIMATED BLOOD LOSS: Less than 5 mL. MATERIAL: None. COMPLICATIONS: None. INDICATIONS FOR PROCEDURE: This is a 68-year-old female who presents now status post left-sided thrombectomy with dry gangrenous changes to the left third digit at the distal tuft without overt signs of clinical infection. This was exquisitely painful and it was deemed necessary to proceed with surgical intervention for amputation at this time. Surgical options along with potential risks, benefits and complications were fully explained to the patient with a full level of understanding. No guarantees were given. All the patient's questions and concerns were answered and addressed. DESCRIPTION OF PROCEDURE: The patient was brought to the operating room and placed on the operating table in a supine position. After the induction of anesthesia, the patient received a local block consisting of 30 mL of 0.25% Marcaine plain after the foot was prepped and draped in the usual aseptic manner. A timeout was performed. Attention was directed towards the dorsal aspect of the left third digit where a fish-mouth incision was made slightly distal to the proximal interphalangeal joint directly down to bone. The digit was disarticulated at the level of the proximal interphalangeal joint and the toe was passed off to the back table to be sent as a specimen for gross pathology. Soft tissue planes were explored and there were noted to be no overt signs of clinical infection. There was adequate bleeding appreciated. The incision was closed in full thickness consisting of 3-0 nylon in a simple interrupted fashion. The incision was dressed with Bacitracin, 4 x 4's, Webril, and 4-inch Jeff bandage. The patient left the operating room in a hemodynamically stable condition and will follow up in the postoperative period with Dr. Alex Sales. ALEX SALES DPM TID: [id number] RECEIPT: [id number] EDNA/DANYEL/OMAR
--- NOTE | 2024-10-22 12:28 | ELECTROCARDIOGRAPH REPORT ---
[facility] Test Date: 2024-10-22 Test Time: 02:31:59 Pat Name: TERELL YOST Department: Room: [address] Gender: F Ethics Officer: : 1955 Requested By: IRVIN HAWKINS Order Number: [id number] Reading MD: Dr. IKER Vila Measurements Intervals Social Circle Rate: 70 P: 52 PA: 166 QRS: 79 QRSD: 90 T: 72 QT: 430 QTc: 464 Interpretive Statements Sinus rhythm with frequent premature ventricular complexes Nonspecific ST and T wave abnormality Prolonged QT Electronically Signed On 10-22-2024 17:02:[address] IKER Vila Please click the below link to view image of tracing.
--- NOTE | 2024-10-22 17:48 | DISCHARGE SUMMARY-Residence ---
Discharge Summary Providers to CC Resident Creating Document: GENE PIEDRA RES ~ Discharge Summary Admission Diagnosis: 3rd left foot toe gangrene Hospital Course DATE OF ADMISSION: 10/19/2024 DATE OF DISCHARGE: 10/22/2024 Chest x-ray: No acute cardiopulmonary disease. Toe x-ray: Cortical destruction of the 3rd distal phalanx which may represent osteomyelitis. Arterial ultrasound: Patent left SFA stent. No sonographic evidence for hemodynamically significant stenosis. Scattered atherosclerotic calcification disease. Laboratory Tests Test 10/20/24 20:14 10/20/24 20:25 10/21/24 04:09 10/21/24 05:09 Activated Partial Thromboplast Time 48 SECONDS Coagulation Comments Glucometer 171 mg/dl Sodium Level 139 MMOL/L Potassium Level 4.0 MMOL/L Chloride Level 104 MMOL/L Carbon Dioxide Level 24.6 MMOL/L Anion Gap 10 Blood Urea Nitrogen 12 MG/DL Creatinine 0.77 MG/DL Estimated GFR/1.73 m2 74 ML/MIN BUN/Creatinine Ratio 15.6 Glucose Level 133 MG/DL Calcium Level 8.9 MG/DL Magnesium Level 2.0 MG/DL Total Bilirubin 0.6 MG/DL Aspartate Amino Transf (AST/SGOT) 15 U/L Alanine Aminotransferase (ALT/SGPT) 15 U/L Alkaline Phosphatase 81 IU/L Total Protein 6.8 G/DL Albumin 3.2 G/DL Globulin 3.6 G/DL Albumin/Globulin Ratio 0.9 Chemistry Comments White Blood Count 6.3 X10'3 Red Blood Count 4.49 X10'6 Hemoglobin 11.4 g/dl Hematocrit 34.3 % Mean Corpuscular Volume 76.4 FL Mean Corpuscular Hemoglobin 25.3 PG Mean Corpuscular Hemoglobin Concent 33.2 g/dL Red Cell Distribution Width 15.4 % Platelet Count 213 X10'3 Mean Platelet Volume 7.4 FL Neutrophils (%) (Auto) 66.6 % Lymphocytes (%) (Auto) 22.8 % Monocytes (%) (Auto) 6.9 % Eosinophils (%) (Auto) 3.1 % Basophils (%) (Auto) 0.6 % Neutrophils # (Auto) 4.2 X10'3 Lymphocytes # (Auto) 1.4 X10'3 Monocytes # (Auto) 0.4 X10'3 Eosinophils # (Auto) 0.2 X10'3 Basophils # (Auto) 0.0 X10'3 CBC Comment Test 10/21/24 07:19 10/21/24 11:56 10/21/24 16:44 10/21/24 20:37 Glucometer 137 mg/dl 120 mg/dl 115 mg/dl 133 mg/dl Test 10/22/24 04:29 10/22/24 07:23 White Blood Count 7.2 X10'3 Red Blood Count 4.61 X10'6 Hemoglobin 11.5 g/dl Hematocrit 34.7 % Mean Corpuscular Volume 75.1 FL Mean Corpuscular Hemoglobin 24.9 PG Mean Corpuscular Hemoglobin Concent 33.2 g/dL Red Cell Distribution Width 15.4 % Platelet Count 204 X10'3 Mean Platelet Volume 7.4 FL Neutrophils (%) (Auto) 69.8 % Lymphocytes (%) (Auto) 20.2 % Monocytes (%) (Auto) 6.9 % Eosinophils (%) (Auto) 2.6 % Basophils (%) (Auto) 0.5 % Neutrophils # (Auto) 5.0 X10'3 Lymphocytes # (Auto) 1.5 X10'3 Monocytes # (Auto) 0.5 X10'3 Eosinophils # (Auto) 0.2 X10'3 Basophils # (Auto) 0.0 X10'3 CBC Comment Sodium Level 137 MMOL/L Potassium Level 4.0 MMOL/L Chloride Level 104 MMOL/L Carbon Dioxide Level 24.9 MMOL/L Anion Gap 8 Blood Urea Nitrogen 13 MG/DL Creatinine 0.72 MG/DL Estimated GFR/1.73 m2 80 ML/MIN BUN/Creatinine Ratio 18.1 Glucose Level 135 MG/DL Calcium Level 8.9 MG/DL Magnesium Level 2.0 MG/DL Total Bilirubin 0.6 MG/DL Aspartate Amino Transf (AST/SGOT) 14 U/L Alanine Aminotransferase (ALT/SGPT) 18 U/L Alkaline Phosphatase 82 IU/L Total Protein 6.8 G/DL Albumin 3.2 G/DL Globulin 3.6 G/DL Albumin/Globulin Ratio 0.9 Chemistry Comments Glucometer 139 mg/dl Discharge Diagnosis\Comment: 1. Dry gangrene involving the 3rd distal phalanx, left foot 2. Type 2 diabetes mellitus, insulin-dependent 3. Peripheral artery disease 4. Coronary artery disease, s/p CABG in 2011 5. Hyperlipidemia Operations\Procedures: Third toe left foot amputation Consultants: Podiatry Complications: None Condition on DC: Stable New Medications: Aspirin (Aspirin) 81 Mg Tab.chew 1 TAB PO DAILY for 30 Days, #30 TAB.CHEW Atorvastatin Calcium (Atorvastatin Calcium) 20 Mg Tablet 40 MG PO DAILY for 30 Days, #60 TAB Hydrocodone Bit/Acetaminophen 5/325 MG ([place]ickman 5/325 MG) 5 Mg/325 Mg Tablet 1 TAB PO Q6H PRN for pain, #14 TAB Continued Medications: Clopidogrel Bisulfate (Clopidogrel) 75 Mg Tablet 1 TAB PO DAILY Duloxetine HCl (Duloxetine HCl) 30 Mg Capsule.dr 1 CAP PO DAILY for 30 Days, #30 CAP Insulin Glargine/Lixisenatide (Soliqua 100 Unit-33 Mcg/ml Pen) 100 Unit-33 Mcg/Ml (3 Ml) Insuln.pen 28 UNITS SUBCUT DAILY Meclizine HCl (Meclizine HCl) 12.5 Mg Tablet 1 TAB PO Q8H for 10 Days, #30 TAB Meclizine HCl (Meclizine HCl) 12.5 Mg Tablet 2 TAB PO Q8H for dizziness for 30 Days, #90 TAB Metformin Hcl* (Metformin ER*) 500 Mg Tab.sr.24h 1 TAB PO BID for 30 Days, #30 TAB Metoprolol Tartrate* (Metoprolol Tartrate*) 50 Mg Tablet 1 TAB PO BID for 30 Days, #60 TAB Nitroglycerin SL* (Nitrostat SL*) 0.4 Mg Tablet 1 TAB SL UD for chest pain, #25 TAB 1st sign of attack; may repeat every 5 mins; if pain persists after 3 in 15 min, medical attention is recommended Omeprazole (Prilosec) 40 Mg Capsule 20 MG PO DAILY for 30 Days, #30 CAP Pregabalin (Pregabalin) 75 Mg Capsule 1 CAP PO BID Discharge Summary: History of present illness This is a 68-year-old female patient with past medical history of type 2 diabetes mellitus, PAD, hyperlipidemia, CAD, presents for progressive pain in the 3rd distal phalanx of the left foot. The patient had an acute arterial occlusion of the left leg in September 16, treated with stenting placement. Soon after the procedure the patient had left foot livedo reticularis and discoloration of the 3rd toe. Patient was discharged and recommended to follow- up outpatient. Patient could not undergo surgery because of insurance denials and has been treated with multiple course of antibiotics. The pain has progressed and she has not being able to do most of her daily activities because of the pain. She denies fever, nausea, vomiting or other systemic symptoms. Hospital course 68-year-old female patient admitted for dry necrosis of the 3rd distal phalanx of the left foot. Symptoms started after an acute arterial occlusion treated with arterial stent one month ago. The patient present because of progressive and persistent pain. The patient underwent amputation of the toe without any complication. Pain is controlled, there was no sign of cellulitis or systemic infection so she can be discharged without any antibiotic. Patient will follow- up with her surgeon outpatient. She was also found to have elevated PTT without being anticoagulated and might benefit from hematology follow-up outpatient. Discharge physical exam General: Awake and Alert, no acute distress. HEENT: Conjunctiva pink, Sclera clear, Mucus Membranes moist. Neck: Supple without masses and tenderness. Resp: Unlabored. Lungs clear to auscultation bilaterally. Heart: Regular Rate and rhythm, normal S1 and S2 without murmur, rub or gallop. Abdomen: Soft and non tender no organomegaly Extremities: No cyanosis,clubbing or edema. Diminished peripheral pulses bilaterally. Wound dress is dry. Skin: Warm and Dry. Discharge medication See below Discharge instructions Follow-up with your primary care doctor in 1-2 weeks Follow-up with Dr Sales for 2 weeks Follow-up with acid blower regarding elevated PTT Please leave dressing until follow up Take norco 5/325mg every 6h as needed Continue aspirin and plavix Continue home medication Come back in case of persistent pain, fever, purulent drainage or any concerning symptoms *Problems/Diagnosis: (1) Osteomyelitis of toe of left foot Status: Resolved (2) Dry gangrene Status: Resolved (3) Peripheral artery disease Status: Chronic (4) Type 2 diabetes mellitus Status: Chronic (5) Coronary artery disease Status: Chronic Total Time Spent on D/C: > 30 Minutes Date of Service: Oct 22, 2024 Billing Provider: IRVIN HAWKINS MD Common Visit Codes: 31491-LBS/OBS DISCH DAY >30min GENE PIEDRA RES Oct 22, 2024 17:30 IRVIN HAWKINS MD Oct 24, 2024 07:54
== END 2024-10-22 10:53 | disposition home health service (06) | DRG 256 ==
LOC: ER 11:28 → ED HOLD 18:13 → SUR 3N 20:20 → ORTHO 4S 10-22 05:30
PROVIDERS: ADMIT Internal Medicine; ATTEND Internal Medicine
PROC: 0Y6U0Z2 Detachment at Left 3rd Toe, Mid, Open Approach (ICD-10-PCS; principal; 2024-10-21 18:49)
DX: E11.52 Type 2 diabetes mellitus with diabetic peripheral angiopathy with gangrene (principal); M86.8X7 Other osteomyelitis, ankle and foot; I75.022 Atheroembolism of left lower extremity; Z66 Do not resuscitate; I25.10 Atherosclerotic heart disease of native coronary artery without angina pectoris; E11.69 Type 2 diabetes mellitus with other specified complication; I10 Essential (primary) hypertension; Z87.891 Personal history of nicotine dependence; E78.5 Hyperlipidemia, unspecified; Z79.84 Long term (current) use of oral hypoglycemic drugs; Z79.899 Other long term (current) drug therapy; Z90.49 Acquired absence of other specified parts of digestive tract; Z90.710 Acquired absence of both cervix and uterus
CPT/HCPCS: 36415; 71045; 73660; 80048; 80053; 80061; 82948; 83036; 83735; 83880; 84145; 85025; 85610; 85651; 85730; 86140; 87040; 87081; 93005; 93926; 96365; 96372; 96375; 97116; 97161; 97530; 99285; A4618; A6223; A6253; A6449; A7000; G0378; J1644; J1815; J2250; J2270; J2704; J3010; J3373; J3490; J7120

== ENCOUNTER 2025-01-17 13:41 | Emergency (ER) | payer OTHER ==
[~2025-01-17] VITALS: Ht 162.6 cm; Wt 99.4 kg
[~2025-01-17 13:41] MED LIST changes: +ATOR20TA66 PO; +CLOP75TA34 PO; +INSU3INS2 SUBCUT; +PREG75CA76 PO
[2025-01-17 13:48] VITALS: BP 172/88; PULSE 91; RESP 14; O2SAT 96
--- NOTE | 2025-01-17 14:30 | RADIOLOGY REPORT ---
CLINICAL HISTORY: LEFT SIDED RIB PAIN TECHNIQUE: Chest 2 views of the chest were obtained. COMPARISON: DI CHEST,SINGLE VIEW on DOS: 10/20/24 FINDINGS: The heart size and pulmonary vasculature are normal. The lungs are clear. No pleural effusion is present. There are mediastinal clips. There are midline sternotomy wires. IMPRESSION: NO ACUTE CARDIOPULMONARY PROCESS.
--- NOTE | 2025-01-17 15:02 | Physician Documentation ---
History of Present Illness ~ Chief Complaint: Rib pain Stated Complaint: RIB PAIN Time Seen by MD: 14:23 Primary Medical Doctor: [facility] This is a 69-year-old female who presents with one-week of left lower chest wall pain onset while playing with her grandson, patient reports feeling a pop at onset of pain and reports pain is worse with palpation, deep breathing, or any kind of muscle movement that engages area. Patient reports no other new acute symptoms or concerns, patient reports that she did see her primary care provider and was prescribed a muscle relaxer for the pain however has not taken it as she does not like taking pills. Tetanus within 5 Years?: Yes Allergies: Coded Allergies: No Known Allergies (Unverified , 01/17/25) Active Prescriptions See Medication Reconciliation Form. Medication Reconciliation Scheduled Atorvastatin Calcium (Atorvastatin Calcium), 40 MG PO DAILY Clopidogrel Bisulfate (Clopidogrel), 1 TAB PO DAILY, (Reported) Duloxetine HCl (Duloxetine HCl), 1 CAP PO DAILY, (Reported) Insulin Glargine/Lixisenatide (Soliqua 100 Unit-33 Mcg/ml Pen), 28 UNITS SUBCUT DAILY, (Reported) Lidocaine (Lidoderm), 1 PATCH TOP DAILY Meclizine HCl (Meclizine HCl), 1 TAB PO Q8H Meclizine HCl (Meclizine HCl), 2 TAB PO Q8H Metformin Hcl* (Metformin ER*), 1 TAB PO BID, (Reported) Metoprolol Tartrate* (Metoprolol Tartrate*), 1 TAB PO BID, (Reported) Nitroglycerin SL* (Nitrostat SL*), 1 TAB SL UD, (Reported) Omeprazole (Prilosec), 20 MG PO DAILY, (Reported) Pregabalin (Pregabalin), 1 CAP PO BID, (Reported) Past Medical History Past Medical History: Coronary Artery Disease, Diabetes Past Surgical History: appendectomy, cholecystectomy, hysterectomy, orthopedic surgeries Other Past Surgical History: Open heart surgery Drug Use: none Lives In: Home Review of Systems ROS As stated above in the HPI, otherwise all systems are reviewed and negative. Physical Exam Vital Signs: Temperature: 97.6, Source: Temporal, Heart Rate: 91, Respiratory Rate: 14, BP: 172/88, Pulse Oximetry: 96, Weight: 99.400 Oxygen Flow Rate: 0 Physical Exam VITALS: Reviewed and as above. GENERAL: Alert, nontoxic appearing, no apparent distress. RESPIRATORY: No increased work of breathing, no respiratory distress, speaking in full clear sentences, clear lung sounds in all cuello CHEST: Left lower chest wall beneath left breast greatest area of tenderness with tenderness extending to lateral chest wall and posterior chest wall no crepitus, no paradoxical movement, no step-offs CV: Regular rate and rhythm no murmur BACK: No CVA tenderness Progress Results/Orders Results/Orders Completed Orders - GEOFF ZUNIGA HOG FEEDER Lidocaine 5% Patch (Lidoderm 5% Patch) (01/17/25 14:55) Vital Signs 01/17/25 01/17/25 13:48 15:13 Temp 97.6 97.6 Pulse 91 Resp 14 B/P (MAP) 172/88 Pulse Ox 96 O2 Flow Rate 0 EKG/XRAY/CT/US/VASC/MRI Chest X-Ray : Additional Comments Exam: CHEST,TWO VIEWS CLINICAL HISTORY: LEFT SIDED RIB PAIN TECHNIQUE: Chest 2 views of the chest were obtained. COMPARISON: DI CHEST,SINGLE VIEW on DOS: 10/20/24 FINDINGS: The heart size and pulmonary vasculature are normal. The lungs are clear. No pleural effusion is present. There are mediastinal clips. There are midline sternotomy wires. IMPRESSION: NO ACUTE CARDIOPULMONARY PROCESS. Electronically Signed by:PHUC BEDOYA MD Date & Time: 01/17/251426 Dictated by: PHUC BEDOYA MD Dictation date and time: 01/17/251426 I have reviewed and agree with the radiology report. I have reviewed and interpreted the imaging as: No focal, no pneumothorax, no displaced rib fractures Medical Decision Making Additional information obtaine: N/A Findings Patient offered EKG and lab work for cardiac workup however declined, though given reproducible lower chest wall pain I have low suspicion for cardiac origin of pain. Differential Dx:Considerations: Include: Chest wall contusion, Flail chest, Pneumothorax, Pulmonary contusion, Rib fracture, Renal contusion, Splenic fracture, Tension pneumothorax Departure Time of Disposition: 14:59 Disposition: 01 HOME / SELF CARE / HOMELESS Impression: Primary Impression: Left-sided chest wall pain Condition: Improved Discharge Instructions: Chest Wall Pain Additional Instructions: This appears to be a strain or other soft tissue injury to your ribcage, please use the prescribed lidocaine patches as needed for pain, you may use Tylenol as needed for pain as directed by [id number] packaging. Please consider using your previously prescribed muscle relaxer as well. Please return to the emergency department if you change your mind about wanting other pain medications for this. Maintain light activity and do not remain completely sedentary as this may increase your risk of pneumonia. Follow up with your primary care provider for further management of this pain. Please follow up with your primary care provider in the next few days. Please return to the emergency department for any new or worsening concerning symptoms. Referrals: NO PRIMARY CARE PROVIDER (PCP) Prescriptions Lidocaine (Lidoderm) 5 % Adh..patch 1 PATCH TOP DAILY for 10 Days, #10 PATCH 0 Refills may wear up to 12 hours Prov: GEOFF ZUNIGA 01/17/25 Education Educated: Patient Educated regarding: diagnosis, treatment, prognosis, need for follow up Signature Scribe Signature: No scribe Attestation: The note accurately reflects work and decisions made by me.VI Carr 01/18/25 12:03 GEOFF ZUNIGA Jan 17, 2025 15:02
[2025-01-17 15:13] VITALS: TEMP 97.6
[2025-01-17] MEDS ORDERED: LIDO-52 TOP (15:13)
== END 2025-01-17 15:14 | disposition home or self-care (01) ==
LOC: ER 13:42
DX: R07.89 Other chest pain (principal); I25.10 Atherosclerotic heart disease of native coronary artery without angina pectoris; E11.9 Type 2 diabetes mellitus without complications; Z79.84 Long term (current) use of oral hypoglycemic drugs; Z79.4 Long term (current) use of insulin; Z79.899 Other long term (current) drug therapy; Z79.02 Long term (current) use of antithrombotics/antiplatelets; Z90.710 Acquired absence of both cervix and uterus; Z90.49 Acquired absence of other specified parts of digestive tract; Z98.890 Other specified postprocedural states
CPT/HCPCS: 71046; 99283

== ENCOUNTER 2025-01-24 10:12 | Outpatient (CLI) | payer OTHER ==
[~2025-01-24 10:12] MED LIST changes: +LIDO-52 TOP
--- NOTE | 2025-01-24 11:36 | RADIOLOGY REPORT ---
EXAM: DI KNEE, COMP 4 VW MIN CLINICAL INDICATION: RIGHT KNEE PAIN AND STIFFNESS TECHNIQUE: DI KNEE, COMP 4 VW MIN Comparison: None FINDINGS/IMPRESSION: There is no evidence of acute fracture or dislocation. Advanced right knee osteoarthritis. Surgical clips are present throughout the subcutaneous tissue. The alignment is anatomical. There is no radiopaque foreign body.
--- NOTE | 2025-01-24 11:39 | RADIOLOGY REPORT ---
EXAM: DI SHOULDER, COMPLETE (MIN 2 VWS) CLINICAL INDICATION: RIGHT SHOULLDER PAIN AND STIFFNESS TECHNIQUE: DI SHOULDER, COMPLETE (MIN 2 VWS) Comparison: None FINDINGS/IMPRESSION: There is no evidence of acute fracture or dislocation. Moderate bilateral glenohumeral osteoarthritis The alignment is anatomical. There is no radiopaque foreign body.
== END 2025-01-24 23:59 | disposition home or self-care (01) ==
LOC: RAD 10:12
PROVIDERS: ATTEND Physician Assistant
DX: M19.011 Primary osteoarthritis, right shoulder (principal); M25.511 Pain in right shoulder; M25.811 Other specified joint disorders, right shoulder; M19.012 Primary osteoarthritis, left shoulder; M17.11 Unilateral primary osteoarthritis, right knee
CPT/HCPCS: 73030; 73564

== ENCOUNTER 2025-01-28 09:08 | Outpatient (CLI) | payer OTHER ==
--- NOTE | 2025-01-28 11:24 | RADIOLOGY REPORT ---
CLINICAL INFORMATION: PAIN IN RIGHT SHOULDER. TECHNIQUE: Multisequence multiplanar MRI images of the right shoulder were obtained without contrast. COMPARISON: Radiographs dated 01/24/2025. FINDINGS: Acromioclavicular joint: There is moderate acromioclavicular hypertrophy and moderate edema. There is Type 2 acromion. Small to moderate amount of fluid in the subacromial / subdeltoid bursa. Rotator cuff tendons: Mild tendinosis of the distal supraspinatus and infraspinatus tendons. Partial-thickness tear involving the anterior fibers of the supraspinatus tendon measuring approximately 0.9 cm in AP dimension and up to 0.5 cm in transverse dimension, with thin articular surface fibers appearing to remain intact at the level of the tear. Can not exclude small articular surface communication. The tear involves greater than 50% of the tendon thickness. There is also bursal surface fraying of the distal supraspinatus and infraspinatus tendons. Mild tendinosis of the distal subscapularis tendon. No tear visualized given the limitations of the examination due to motion artifact. Teres minor tendon appears grossly intact. Biceps tendon: Mild tendinosis of the proximal long head biceps tendon. No tear visualized. Labrum: Intrasubstance signal in the superior labrum, suspected tear extending to the level of the biceps anchor with no visualized propagation into the long head biceps tendon. Bones: No fracture or focal marrow contusion. Muscles: Normal muscle bulk. No atrophy. Other: Motion artifact limits evaluation. IMPRESSION: 1. Motion limited study. 2. Rotator cuff tendinosis with partial-thickness interstitial tear of the distal supraspinatus tendon and bursal surface fraying of the distal supraspinatus and infraspinatus tendons. 3. Intrasubstance signal in the superior labrum, suspected tear, although suboptimally evaluated due to the motion artifact. 4. Mild tendinosis of the proximal long head biceps tendon with no tear visualized. 5. Moderate acromioclavicular hypertrophy with [id number] subacromial/subdeltoid bursitis.
== END 2025-01-28 23:59 | disposition home or self-care (01) ==
LOC: MRI02 09:08
PROVIDERS: ATTEND Physician Assistant
DX: M75.111 Incomplete rotator cuff tear or rupture of right shoulder, not specified as traumatic (principal); M25.511 Pain in right shoulder; M25.611 Stiffness of right shoulder, not elsewhere classified; M75.21 Bicipital tendinitis, right shoulder; M75.51 Bursitis of right shoulder
CPT/HCPCS: 73221